=== PATIENT | male | born 1950 | race Caucasian/White ===

== ENCOUNTER 2021-01-07 10:34 | Day surgery (SDC) | payer OTHER ==
[2020-12-31 13:01] VITALS: BMI 21.7
[2021-01-07] MEDS ORDERED: BUPIVACAINE HCL/PF 0.5% (5 MG/ML) 30 ML VIAL IJ ONE (11:26)
[2021-01-07] MEDS ORDERED: DEXAMETHASONE SOD PHOSPHATE 10 MG/1 ML VIAL ONE (11:26)
[2021-01-07] MEDS ORDERED: MIDAZOLAM HCL 2 MG/2 ML SINGLE DOSE VIAL ONE (11:26)
[2021-01-07] MEDS ORDERED: ONDANSETRON 4 MG/2 ML VIAL ONE (12:32)
[2021-01-07] MEDS ORDERED: DEXAMETHASONE SOD PHOSPHATE 4 MG/1 ML VIAL ONE (12:32)
[2021-01-07] MEDS ORDERED: ceFAZolin SODIUM 1 GM VIAL ONE (12:33)
[2021-01-07] MEDS ORDERED: oxyCODONE HCL 5 MG TABLET PO PRN (13:33)
[2021-01-07] MEDS ORDERED: ONDANSETRON 4 MG/2 ML VIAL IVPUSH PRN (13:33)
[2021-01-07] MEDS ORDERED: LACTATED RINGERS SOLUTION 1,000 ML IV SCH (13:45)
[2021-01-07 16:07] VITALS: BP 120/67; PULSE 74; TEMP 97.7
== END 2021-01-07 16:07 | disposition home or self-care (01) ==
LOC: FASU 10:34
PROVIDERS: ATTEND Orthopaedic Surgery
PROC: 0LQ14ZZ Repair Right Shoulder Tendon, Percutaneous Endoscopic Approach (ICD-10-PCS; 2021-01-07)
PROC: 0RNJ4ZZ Release Right Shoulder Joint, Percutaneous Endoscopic Approach (ICD-10-PCS; 2021-01-07)
PROC: 0RNJ4ZZ Release Right Shoulder Joint, Percutaneous Endoscopic Approach (ICD-10-PCS; 2021-01-07)
PROC: 0RBJ4ZZ Excision of Right Shoulder Joint, Percutaneous Endoscopic Approach (ICD-10-PCS; principal; 2021-01-07 12:44)
PROC: 0MM14ZZ Reattachment of Right Shoulder Bursa and Ligament, Percutaneous Endoscopic Approach (ICD-10-PCS; 2021-01-07 12:44)
DX: M75.121 Complete rotator cuff tear or rupture of right shoulder, not specified as traumatic (principal); M75.41 Impingement syndrome of right shoulder; M75.01 Adhesive capsulitis of right shoulder; S46.211A Strain of muscle, fascia and tendon of other parts of biceps, right arm, initial encounter; S43.431A Superior glenoid labrum lesion of right shoulder, initial encounter; X58.XXXA Exposure to other specified factors, initial encounter; Y93.9 Activity, unspecified; Y92.9 Unspecified place or not applicable
CPT/HCPCS: 88304-TC; 94760; J1100

== ENCOUNTER 2023-12-01 15:42 | Inpatient (IN) | payer OTHER ==
[2023-12-01 16:28] VITALS: BMI 23.6
[2023-12-01] MEDS ORDERED: P-EPHED 60MG/TRIPROLIDI 2.5MG TABLET PO PRN (17:13)
[2023-12-01] MEDS ORDERED: BISMUTH SUBSALICYLATE 524 MG/30 ML PO PRN (17:13)
[2023-12-01] MEDS ORDERED: POLYETHYLENE GLYCOL (HEALTHYLAX) 3350 17 GM PACKET PO PRN (17:13)
[2023-12-01] MEDS ORDERED: LOPERAMIDE HCL 2 MG CAPSULE PO PRN (17:13)
[2023-12-01] MEDS ORDERED: IBUPROFEN 400 MG TABLET (FP) PO PRN (17:13)
[2023-12-01] MEDS ORDERED: ACETAMINOPHEN 325 MG TABLET (FP) PO PRN (17:13)
[2023-12-01] MEDS ORDERED: BENZOCAINE/MENTHOL (CHLORASEPTIC ) LOZENGE MM PRN (17:13)
[2023-12-01] MEDS ORDERED: guaiFENesin 600 MG TABLET.ER (FP) PO PRN (17:13)
[2023-12-01] MEDS ORDERED: BENZONATATE 200 MG CAPSULE PO PRN (17:13)
[2023-12-01] MEDS ORDERED: diazePAM 5 MG TABLET PO PRN (17:14)
[2023-12-01] MEDS ORDERED: diazePAM 5 MG TABLET ONE (18:10)
[2023-12-01] MEDS: diazePAM 5 MG TABLET PO SCH (18:13)
[2023-12-01] MEDS: THIAMINE 100 MG TABLET PO SCH (22:51)
[2023-12-01] MEDS: MELATONIN 5 MG TABLETS PO SCH (22:51)
[2023-12-02] MEDS: ONDANSETRON *ODT* 4 MG TABLET SL PRN (05:24)
[2023-12-02] MEDS: PRENATAL VITAMINS W/ FOLIC ACID TABLET (FP) PO SCH (10:09)
[2023-12-02] MEDS: PNEUMOC 20-VAL CONJ-DIP CRM/PF 0.5 ML SYRINGE IM ONE (13:00)
[2023-12-02] MEDS: MAG HYDROX/AL HYDROX/SIMETH 30 ML UNIT-DOSE CUP PO PRN (17:19)
[2023-12-03] MEDS: diazePAM 5 MG TABLET PO SCH (05:25)
[2023-12-03] MEDS: PANTOPRAZOLE 40 MG TABLET PO SCH (11:52)
[2023-12-03] MEDS: NALTREXONE HCL 50 MG TABLET PO ONE (12:43)
[2023-12-04] MEDS: diazePAM 5 MG TABLET PO SCH (05:44)
[2023-12-04] MEDS: NALTREXONE HCL 50 MG TABLET PO SCH (10:22)
[2023-12-05] MEDS: diazePAM 5 MG TABLET PO ONE (06:02)
[2023-12-05] MEDS: MAGNESIUM HYDROX 2400MG/30ML ORAL SUSPENSION 30 ML CUP PO PRN (06:04)
[2023-12-05 09:03] VITALS: BP 117/77; PULSE 84; RESP 18; TEMP 97.8
== END 2023-12-05 09:43 | disposition home or self-care (01) | DRG 897 ==
LOC: YASAS 15:42 → Y3N 17:57
PROVIDERS: ADMIT Allergy & Immunology; ATTEND Surgery
PROC: HZ2ZZZZ Detoxification Services for Substance Abuse Treatment (ICD-10-PCS; principal; 2023-12-01)
DX: F10.230 Alcohol dependence with withdrawal, uncomplicated (principal); K21.9 Gastro-esophageal reflux disease without esophagitis; R06.6 Hiccough; Z87.891 Personal history of nicotine dependence
CPT/HCPCS: 80305; 87635; 87811; 90677; G0009; Q0162

== ENCOUNTER 2024-01-25 15:38 | Inpatient (IN) | payer OTHER ==
[2024-01-25 18:04] VITALS: BMI 23.6
[2024-01-25] MEDS ORDERED: BENZONATATE 200 MG CAPSULE PO PRN (21:16)
[2024-01-25] MEDS ORDERED: IBUPROFEN 400 MG TABLET (FP) PO PRN (21:16)
[2024-01-25] MEDS ORDERED: BENZOCAINE/MENTHOL (CHLORASEPTIC ) LOZENGE MM PRN (21:16)
[2024-01-25] MEDS ORDERED: guaiFENesin 600 MG TABLET.ER (FP) PO PRN (21:16)
[2024-01-25] MEDS ORDERED: NALOXONE HCL 0.4 MG/ML VIAL IM PRN (21:16)
[2024-01-25] MEDS ORDERED: LOPERAMIDE HCL 2 MG CAPSULE PO PRN (21:16)
[2024-01-25] MEDS ORDERED: BISMUTH SUBSALICYLATE 524 MG/30 ML PO PRN (21:16)
[2024-01-25] MEDS ORDERED: NALOXONE HCL (KLOXXADO) 8 MG SPRAY NS PRN (21:16)
[2024-01-25] MEDS ORDERED: POLYETHYLENE GLYCOL (HEALTHYLAX) 3350 17 GM PACKET PO PRN (21:16)
[2024-01-25] MEDS ORDERED: MAGNESIUM HYDROX 2400MG/30ML ORAL SUSPENSION 30 ML CUP PO PRN (21:16)
[2024-01-25] MEDS ORDERED: ACETAMINOPHEN 325 MG TABLET (FP) PO PRN (21:16)
[2024-01-25] MEDS ORDERED: DICYCLOMINE HCL 10 MG CAPSULE PO PRN (21:16)
[2024-01-25] MEDS ORDERED: LORazepam 1 MG TABLET PO PRN (21:30)
[2024-01-25] MEDS ORDERED: MELATONIN 5 MG TABLETS ONE (21:45)
[2024-01-25] MEDS: FAMOTIDINE 20 MG TABLET PO ONE (21:48)
[2024-01-25] MEDS: MELATONIN 5 MG TABLETS PO SCH (21:49)
[2024-01-25] MEDS: THIAMINE 100 MG TABLET PO SCH (21:49)
[2024-01-25] MEDS: ONDANSETRON *ODT* 4 MG TABLET SL PRN (22:50)
[2024-01-25] MEDS: LORazepam 2 MG TABLET PO SCH (23:24)
[2024-01-26] MEDS: PRENATAL VITAMINS W/ FOLIC ACID TABLET (FP) PO SCH (10:22)
[2024-01-26] MEDS: MAG HYDROX/AL HYDROX/SIMETH 30 ML UNIT-DOSE CUP PO PRN (10:23)
[2024-01-26] MEDS: FAMOTIDINE 20 MG TABLET PO SCH (10:23)
[2024-01-27] MEDS: LORazepam 1 MG TABLET PO SCH (05:33)
[2024-01-28] MEDS ORDERED: LORazepam 0.5 MG TABLET PO PRN
[2024-01-28] MEDS: LORazepam 0.5 MG TABLET PO SCH (05:27)
[2024-01-28] MEDS: IBUPROFEN 600 MG TABLET (FP) PO PRN (05:28)
[2024-01-28] MEDS ORDERED: INSULIN ASPART SLIDING SCALE (NOVOLOG) 1 VIAL SQ ONE (07:00)
[2024-01-28 17:18] VITALS: RESP 16
[2024-01-29] MEDS: LORazepam 0.5 MG TABLET PO ONE (05:30)
[2024-01-29 06:50] VITALS: BP 116/72; PULSE 68; TEMP 97.8
== END 2024-01-29 10:25 | disposition home or self-care (01) | DRG 897 ==
LOC: YASAS 15:38 → Y3N 21:42
PROVIDERS: ADMIT Allergy & Immunology; ATTEND Surgery
PROC: HZ2ZZZZ Detoxification Services for Substance Abuse Treatment (ICD-10-PCS; principal; 2024-01-25)
DX: F10.230 Alcohol dependence with withdrawal, uncomplicated (principal); G47.00 Insomnia, unspecified; K29.20 Alcoholic gastritis without bleeding; K21.9 Gastro-esophageal reflux disease without esophagitis; Z85.819 Personal history of malignant neoplasm of unspecified site of lip, oral cavity, and pharynx
CPT/HCPCS: 36415; 80305; 86593; 86780; Q0162

== ENCOUNTER 2024-04-02 23:35 | Inpatient (IN) | payer OTHER ==
[2024-04-03 00:24] VITALS: BMI 23.4
[2024-04-03] MEDS ORDERED: POLYETHYLENE GLYCOL (HEALTHYLAX) 3350 17 GM PACKET PO PRN (01:17)
[2024-04-03] MEDS ORDERED: ACETAMINOPHEN 325 MG TABLET (FP) PO PRN (01:17)
[2024-04-03] MEDS ORDERED: BENZOCAINE/MENTHOL (CHLORASEPTIC ) LOZENGE MM PRN (01:17)
[2024-04-03] MEDS ORDERED: BENZONATATE 200 MG CAPSULE PO PRN (01:17)
[2024-04-03] MEDS ORDERED: IBUPROFEN 400 MG TABLET (FP) PO PRN (01:17)
[2024-04-03] MEDS ORDERED: IBUPROFEN 600 MG TABLET (FP) PO PRN (01:17)
[2024-04-03] MEDS ORDERED: NALOXONE HCL 0.4 MG/ML VIAL IM PRN (01:17)
[2024-04-03] MEDS ORDERED: MAGNESIUM HYDROX 2400MG/30ML ORAL SUSPENSION 30 ML CUP PO PRN (01:17)
[2024-04-03] MEDS ORDERED: NALOXONE (NARCAN) HCL 4 MG/0.1 ML SPRAY NS PRN (01:17)
[2024-04-03] MEDS ORDERED: guaiFENesin 600 MG TABLET.ER (FP) PO PRN (01:17)
[2024-04-03] MEDS ORDERED: LOPERAMIDE HCL 2 MG CAPSULE PO PRN (01:17)
[2024-04-03] MEDS ORDERED: LORazepam 1 MG TABLET PO PRN (01:41)
[2024-04-03] MEDS ORDERED: LORazepam 1 MG TABLET ONE ×2 (05:17→11:11)
[2024-04-03] MEDS: LORazepam 2 MG TABLET PO SCH (05:21)
[2024-04-03] MEDS ORDERED: PRENATAL VITAMINS W/ FOLIC ACID TABLET (FP) PO ONE (09:28)
[2024-04-03] MEDS: PRENATAL VITAMINS W/ FOLIC ACID TABLET (FP) PO SCH (09:29)
[2024-04-03 11:42] LABS: POTASSIUM 4.2 mmol/L (3.5-5.1)
[2024-04-03 11:53] LABS: HEMATOCRIT 41.7 % (35.4-49); HEMOGLOBIN 14.2 GM/dL (11.7-16.9); MCH 32.6 pg (25.7-33.7); MCHC 34.1 g/dl (32.0-35.9); MEAN CELL VOLUME 95.5 fl (80-96); PLATELET COUNT 249 10^3/uL (134-434); RBC 4.36 M/mm3 (4.00-5.60); RDW 14.9 % (11.9-15.9); WHITE BLOOD COUNT 7.9 K/mm3 (4.0-10.0)
[2024-04-03 12:23] LABS: CALCIUM 9.3 mg/dL (8.5-10.1)
[2024-04-03 12:24] LABS: BLOOD UREA NITROGEN 13.9 mg/dL (7-18)
[2024-04-03 12:28] LABS: CREATININE 0.8 mg/dL (0.55-1.3); TOT PROT 7.4 g/dl (6.4-8.2)
[2024-04-03 12:30] LABS: BILIRUBIN,TOTAL 0.9 mg/dL (0.2-1)
[2024-04-03] MEDS: MAG HYDROX/AL HYDROX/SIMETH 30 ML UNIT-DOSE CUP PO PRN (17:07)
[2024-04-03] MEDS: LORazepam 1 MG TABLET PO SCH (17:35)
[2024-04-03] MEDS: BISMUTH SUBSALICYLATE 524 MG/30 ML PO PRN (20:09)
[2024-04-03] MEDS: MELATONIN 5 MG TABLETS PO SCH (22:35)
[2024-04-03] MEDS: THIAMINE 100 MG TABLET PO SCH (22:35)
[2024-04-04] MEDS: LORazepam 1 MG TABLET PO SCH (05:41)
[2024-04-05] MEDS ORDERED: LORazepam 0.5 MG TABLET PO PRN
[2024-04-05] MEDS: ONDANSETRON *ODT* 4 MG TABLET SL PRN (01:30)
[2024-04-05] MEDS: LORazepam 0.5 MG TABLET PO SCH (05:36)
[2024-04-05 12:50] VITALS: BP 119/71; PULSE 87; RESP 16; TEMP 98
[2024-04-06] MEDS ORDERED: LORazepam 0.5 MG TABLET PO ONE (05:00)
== END 2024-04-05 12:45 | disposition home or self-care (01) | DRG 897 ==
LOC: YASAS 23:35 → Y6N 04-03 10:53
PROVIDERS: ADMIT Allergy & Immunology; ATTEND Family Medicine Addiction Medicine
PROC: HZ2ZZZZ Detoxification Services for Substance Abuse Treatment (ICD-10-PCS; principal; 2024-04-03)
DX: F19.230 Other psychoactive substance dependence with withdrawal, uncomplicated (principal); F10.230 Alcohol dependence with withdrawal, uncomplicated; F10.282 Alcohol dependence with alcohol-induced sleep disorder; G47.00 Insomnia, unspecified; K21.9 Gastro-esophageal reflux disease without esophagitis; Z85.819 Personal history of malignant neoplasm of unspecified site of lip, oral cavity, and pharynx
CPT/HCPCS: 36415; 80053; 80305; 85027; 93005; 93010; Q0162

== ENCOUNTER 2024-08-05 13:52 | Inpatient (IN) | payer OTHER ==
[2024-08-05 14:32] VITALS: BMI 24.0
[2024-08-05] MEDS ORDERED: guaiFENesin 600 MG TABLET.ER (FP) PO PRN (14:54)
[2024-08-05] MEDS ORDERED: MAGNESIUM HYDROX 2400MG/30ML ORAL SUSPENSION 30 ML CUP PO PRN (14:54)
[2024-08-05] MEDS ORDERED: BISMUTH SUBSALICYLATE 262 MG/15 ML BTL PO PRN (14:54)
[2024-08-05] MEDS ORDERED: POLYETHYLENE GLYCOL (HEALTHYLAX) 3350 17 GM PACKET PO PRN (14:54)
[2024-08-05] MEDS ORDERED: LOPERAMIDE HCL 2 MG CAPSULE PO PRN (14:54)
[2024-08-05] MEDS ORDERED: BENZONATATE 200 MG CAPSULE PO PRN (14:54)
[2024-08-05] MEDS ORDERED: BENZOCAINE/MENTHOL (CHLORASEPTIC ) LOZENGE MM PRN (14:54)
[2024-08-05] MEDS ORDERED: PANTOPRAZOLE SOD 40 MG SUSPENSION PACKET PO SCH (15:45)
[2024-08-05] MEDS: MAG HYDROX/AL HYDROX/SIMETH 30 ML UNIT-DOSE CUP PO PRN (17:41)
[2024-08-05] MEDS: ONDANSETRON *ODT* 4 MG TABLET SL PRN (18:08)
[2024-08-05] MEDS ORDERED: chlordiazePOXIDE HCL 25 MG CAPSULE PO PRN (18:14)
[2024-08-05] MEDS: chlordiazePOXIDE HCL 25 MG CAPSULE PO ONE (19:13)
[2024-08-05] MEDS: PANTOPRAZOLE SOD 40 MG SUSPENSION PACKET PO SCH (22:22)
[2024-08-05] MEDS: THIAMINE 100 MG TABLET PO SCH (22:22)
[2024-08-05] MEDS: MELATONIN 5 MG TABLETS PO SCH (22:22)
[2024-08-05] MEDS: chlordiazePOXIDE HCL 25 MG CAPSULE PO SCH (22:23)
[2024-08-06] MEDS: PRENATAL VITAMINS W/ FOLIC ACID TABLET (FP) PO SCH (10:19)
[2024-08-06 11:46] LABS: POTASSIUM 4.1 mmol/L (3.5-5.1)
[2024-08-06 11:52] LABS: HEMATOCRIT 40.5 % (35.4-49); HEMOGLOBIN 13.8 GM/dL (11.7-16.9); MCHC 34.1 g/dl (32.0-35.9); MEAN PLT VOLUME 8.4 fl (7.5-11.1); PLATELET COUNT 216 10^3/uL (134-434); RBC 4.31 M/mm3 (4.00-5.60); RDW 14.7 % (11.9-15.9)
[2024-08-06 11:54] LABS: ALBUMIN 3.5 g/dl (3.4-5.0); CALCIUM 9.7 mg/dL (8.5-10.1)
[2024-08-06 11:55] LABS: BLOOD UREA NITROGEN 14.2 mg/dL (7-18)
[2024-08-06 11:58] LABS: CREATININE 1.1 mg/dL (0.55-1.3)
[2024-08-06 11:59] LABS: BILIRUBIN,TOTAL 1.1 mg/dL (0.2-1); TOT PROT 6.5 g/dl (6.4-8.2)
[2024-08-07] MEDS: chlordiazePOXIDE HCL 25 MG CAPSULE PO SCH (05:53)
[2024-08-07] MEDS: ACETAMINOPHEN 325 MG TABLET (FP) PO PRN (09:10)
[2024-08-07] MEDS: IBUPROFEN 600 MG TABLET (FP) PO PRN (17:34)
[2024-08-08] MEDS ORDERED: chlordiazePOXIDE HCL 10 MG CAPSULE PO PRN
[2024-08-08] MEDS ORDERED: chlordiazePOXIDE HCL 10 MG CAPSULE PO SCH (05:00)
[2024-08-09] MEDS ORDERED: chlordiazePOXIDE HCL 10 MG CAPSULE PO SCH (05:00)
[2024-08-09] MEDS: BACLOFEN 10 MG TABLET (FP) PO PRN (19:37)
[2024-08-09] MEDS: IBUPROFEN 400 MG TABLET (FP) PO PRN (19:37)
[2024-08-10] MEDS: chlordiazePOXIDE HCL 10 MG CAPSULE PO ONE (05:58)
[2024-08-10 09:07] VITALS: BP 125/74; PULSE 72; RESP 17; TEMP 98.2
[2024-08-10] MEDS: NALOXONE (NYS OPIOID OVERDOSE PROGRAM) 4 MG/0.1 ML SPRAY NS PRN (10:24)
== END 2024-08-10 10:37 | disposition home or self-care (01) | DRG 897 ==
LOC: YASAS 13:52 → UNDOADMIN 16:18 → Y3N 16:18 → UNDOADMIN 08-08 20:59 → Y3N 08-08 20:59 → UNDODISIN 08-10 10:37
PROVIDERS: ADMIT Allergy & Immunology; ATTEND Allergy & Immunology
PROC: HZ2ZZZZ Detoxification Services for Substance Abuse Treatment (ICD-10-PCS; principal; 2024-08-08)
DX: F10.230 Alcohol dependence with withdrawal, uncomplicated (principal); F19.282 Other psychoactive substance dependence with psychoactive substance-induced sleep disorder; F41.9 Anxiety disorder, unspecified; K21.9 Gastro-esophageal reflux disease without esophagitis; S92.414A Nondisplaced fracture of proximal phalanx of right great toe, initial encounter for closed fracture; W19.XXXA Unspecified fall, initial encounter; Y93.9 Activity, unspecified; Y92.9 Unspecified place or not applicable; Z85.819 Personal history of malignant neoplasm of unspecified site of lip, oral cavity, and pharynx
CPT/HCPCS: 36415; 73630-TC-RT-FY; 80053; 80305; 80307; 84550; 85027; J0475; Q0162

== ENCOUNTER 2024-08-08 18:16 | Emergency (ER) | payer OTHER ==
[2024-08-08 18:54] VITALS: BP 112/76; PULSE 88; RESP 18; BMI 23.0
[2024-08-08 19:10] VITALS: TEMP 98.1
[2024-08-08] MEDS ORDERED: ACETAMINOPHEN 325 MG TABLET (FP) ONE (19:28)
[2024-08-08] MEDS: ACETAMINOPHEN 325 MG TABLET (FP) PO ONE (19:30)
== END 2024-08-08 20:32 | disposition home or self-care (01) ==
LOC: JER 18:16
DX: S92.404A Nondisplaced unspecified fracture of right great toe, initial encounter for closed fracture (principal); W22.8XXA Striking against or struck by other objects, initial encounter
CPT/HCPCS: 99283-25